=== PATIENT | male | born 2000 | race Asian ===

== ENCOUNTER 2024-05-14 19:51 | Inpatient (IN) ==
--- NOTE | 2024-05-14 20:14 | Emergency Department Note ---
Impression & Plan Flank pain, Elevated serum creatinine, Hematuria ED Provider Note NAME: BAILEY WEEKS AGE: 23 SEX: M : 2000 ARRIVES VIA: Walk-In INFORMANT: Patient, ED PROVIDER(S): Red Landry MD CHIEF COMPLAINT: Flank pain MEDICAL DECISION MAKING: Patient presented due to concern for right abdominal pain. IV was established and blood work was obtained. Patient did receive IV Toradol IV fluids. Patient with a white count of 11 normal H&H platelet count. Creatinine 1.62. Patient was ordered additional IV fluids. Urinalysis does show ketones along with blood in the urine. Patient was informed of these findings pending CAT scan results. The patient was still having right-sided abdominal pain to the patient was ordered IV morphine. Patient CT abdomen pelvis does not show any evidence of bowel obstruction no pneumoperitoneum normal retrocecal appendix. Trace dependent free fluid in the pelvis no loculation considered abnormal in a male patient however etiology fluid not clearly evident. I did reevaluate the patient the patient still had some abdominal pain although improved. I did reevaluate the patient's abdomen and back. There is no bruising. Patient did have a fall on and did fall down several stairs but states that he had no pain at that time and only developed pain last evening. Given the abnormal findings and pain I did speak with the on-call general surgery team to evaluate the patient. Given patient's findings I did speak with Sukhjinder Mckinney as well as Dr. Attila Conrad and the patient would be admitted for observation and serial exams. Discussion w/ other healthcare providers: Sukhjinder Cornejo PA-C with Dr. Attila Conrad general surgery Prior /Outside records reviewed: None Differential diagnosis: Appendicitis, testicular torsion, UTI, diverticulitis, obstruction, renal colic, mesenteric adenitis, enteririts, PUD, pancreatitis, biliary pathology, hernia, volvulus, constipation, as well as other pathologies were considered. Diagnostics, as interpreted by me: ECG: None Cardiac monitoring: An order was placed for continuous cardiac monitoring. The monitor shows a rate of 65 with sinus rhythm. Patient was placed on pulse oximetry Medical decision rules: None Imaging studies: I informally interpreted the patient's CT abdomen pelvis does not show obvious bowel obstruction with formal report to follow. HPI: Patient presents due to concern for right-sided flank and abdominal pain. The patient reports that he began having the symptoms last evening upon returning home from the football game states that he went to bed when he woke up this morning he felt a little bit better but then it progressively got worse throughout the day. Patient denies any chest pains or shortness of breath. No dysuria or hematuria denies any prior history of kidney stones. The patient denies any history of abdominal surgery. Patient states that he had a bowel movement yesterday. The patient is passing gas. Patient did suffer a fall on and was seen at that time which point he was diagnosed with a nasal bone fracture but states that he had no injury or pain after the fall in his flank abdomen or chest. Patient denies any cough or fever. The patient did take some Advil states it did not significantly improve his symptoms. Patient denies any nausea vomiting. PAST MEDICAL HISTORY: See Below PAST SURGICAL HISTORY: See Below SOCIAL HISTORY: See Below HOME MEDICATIONS: See Below ALLERGIES: See Below VITALS: See Below PHYSICAL EXAMINATION: GENERAL: NAD, non-toxic. EYE EXAM: Normal conjunctiva. PERRL, no anisocoria and EOM's grossly intact w/o pain. Head: Age bruising to the nasal bridge OROPHARYNX: Moist mucus membranes, grossly normal dentition. NECK: Trachea midline, no stridor. Supple, no nuchal rigidity, no adenopathy, non-tender. No signs of meningismus. FROM of the neck with good chin to chest and neck extension. No midline C-spine TTP. LUNGS: Clear to auscultation. Normal chest wall mechanics. HEART: NSR, no MRG. ABDOMEN: Abdomen soft, right-sided abdominal pain, no overlying bruising. Negative obturators and psoas, no masses, no rebound or guarding. BACK: Right-sided CVA TTP. SKIN: No rashes and no bruising. UPPER EXTREMITIES: Upper extremities are grossly normal. LOWER EXTREMITIES: Grossly normal, no edema. NEURO EXAM: A&O x3, cranial nerves II-XII grossly intact, normal speech, moves all 4 extremities. 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 Beliefs That Will Affect Care: None Current Living Situation: Other Current Living Situation Comment: Student housing Other Information That Helps Us Care for You: No Feels Safe at Home: Yes Safety Concerns: Feels Safe At This Time Assistive Devices: None Allergies Allergies Allergy/AdvReac Type Severity Reaction Status Date / Time ketamine AdvReac Confusion Verified 05/15/24 09:26 Home Meds Previous Rx's Medication Instructions Recorded amoxicillin 875 mg-potassium 1 tab PO BID #20 tabs 05/12/24 clavulanate 125 mg tablet oxycodone 5 mg tablet 5 mg PO Q6H PRN pain #8 tabs 05/12/24 Results & Data (ED) Vital Signs Vital Signs - 24 hr 05/14/24 19:53 05/14/24 20:29 05/14/24 20:31 Temperature 36.3 C L Temperature Source Temporal Artery Scan Pulse Rate 67 Pulse Rate [Apical] 58 L Respiratory Rate 18 17 Respiratory Depth Blood Pressure 136/79 Blood Pressure [Right Arm] 142/89 H Blood Pressure Mean 98 Blood Pressure Mean [Right Arm] 106 Blood Pressure Position [Right Arm] Right Lateral Pulse Oximetry 97 98 98 Oxygen Delivery Method Room Air Room Air Sepsis Recent Fever Within 48 Hours No Sepsis New/Unexplained Change in Mental Status N/A Sepsis Action Taken by Nursing No Action Required 05/14/24 22:00 Temperature Temperature Source Pulse Rate Pulse Rate [Apical] 60 Respiratory Rate 17 Respiratory Depth Normal Blood Pressure Blood Pressure [Right Arm] 126/70 Blood Pressure Mean Blood Pressure Mean [Right Arm] 88 Blood Pressure Position [Right Arm] Pulse Oximetry 96 Oxygen Delivery Method Sepsis Recent Fever Within 48 Hours Sepsis New/Unexplained Change in Mental Status Sepsis Action Taken by Residential Medications Current Medication List: was personally reviewed by me Laboratory Data Attestation: I reviewed the patient's lab results. 05/15/24 06:18 05/15/24 06:18 Lab Results 05/14/24 Range/Units 20:08 WBC 11.73 H (4.8-10.8) K/ul RBC 5.10 (4.70-6.10) M/uL Hgb 15.9 (14.0-18.0) g/dl Hct 47.9 (42.0-52.0) % MCV 93.9 (80.0-100.0) fL MCH 31.2 (25.0-34.0) pg MCHC 33.2 (32.0-36.0) g/dL RDW Std Deviation 41.5 (36.4-46.3) fL RDW Coeff of Geo 11.9 (11.5-14.5) % Plt Count 250 (130-400) K/uL MPV 9.9 (9.4-12.4) fL Immature Gran % (Auto) 0.3 % Neut % (Auto) 76.1 % Lymph % (Auto) 12.3 % [place] % (Auto) 10.2 % Eos % (Auto) 0.9 % Baso % (Auto) 0.2 % Neut # (Auto) 8.93 H (1.40-6.50) K/uL Lymph # (Auto) 1.44 (1.20-3.40) K/uL [place] # (Auto) 1.20 H (0.11-0.59) K/uL Eos # (Auto) 0.10 (0.00-0.50) K/uL Baso # (Auto) 0.02 (0.00-0.20) K/uL Immature Gran # (Auto) 0.04 (0.01-0.20) K/uL Sodium 138 (136-145) mmol/L Potassium 3.6 (3.5-5.1) mmol/L Chloride 102 (98-107) mmol/L Carbon Dioxide 27 (21-32) mmol/L Anion Gap 9 (3-11) BUN 11 (6-23) mg/dl Creatinine 1.62 H (0.6-1.4) mg/dl Est Cr Clr Drug Dosing Not Reportable Est GFR ( Amer) 69.3 ml/min Est GFR (Non-Af Amer) 59.8 ml/min BUN/Creatinine Ratio 6.8 L (10-20) Glucose 86 (70-99(Fasting)) mg/dl Calcium 9.3 (8.6-10.3) mg/dl Total Bilirubin 1.0 (0.2-1.0) mg/dl AST 23 (13-39) U/L ALT 14 (7-52) U/L Alkaline Phosphatase 65 (34-104) U/L Total Protein 7.5 (6.0-8.3) gm/dl Albumin 4.9 (3.4-5.0) gm/dl Globulin 2.6 (2.5-4.0) gm/dl Albumin/Globulin Ratio 1.9 (0.9-2) Lipase 5 L (11-82) U/L Urine Color Yellow Urine Appearance Clear (Clear) Urine pH 5.5 (4.5-7.5) Ur Specific [place] 1.009 (1.000-1.030) Urine Protein 3+ H (Negative) Urine Glucose (UA) Negative (Negative) Urine Ketones Trace H (Negative) Urine Blood Trace H (Negative) Urine Nitrite Negative (Negative) Urine Bilirubin Negative (Negative) Urine Urobilinogen Negative (Negative) Ur Leukocyte Esterase Negative (Negative) Urine WBC (Auto) 0-5 (0-5) /hpf Urine RBC (Auto) 0-2 (0-2) /hpf U Hyaline Cast (Auto) 3-5 H (0-2) /lpf U Epithel Cells (Auto) 0-2 (0-2) /hpf Urine Bacteria (Auto) None Seen (None Seen) Administered Medications Lactated Ringer's (Lr) 1,000 mls @ 150 mls/hr IV .Q6H40M [facility] Stop: 06/13/24 23:14 Last Admin: 05/15/24 13:55 Dose: 150 mls/hr Documented By: Infusion: 05/15/24 13:45 Dose: Infused Documented By: Infusion: 05/15/24 10:12 Dose: 150 mls/hr Documented By: Admin: 05/15/24 06:27 Dose: 125 mls/hr Documented By: Infusion: 05/15/24 06:26 Dose: Infused Documented By: B Admin: 05/14/24 23:19 Dose: 125 mls/hr Documented By: ARTI Acetaminophen (Ofirmev) 1,000 mg in 100 mls @ 400 mls/hr IV Q8H PRN PRN Reason: Moderate Pain (Scale 4, 5, 6) Stop: 05/17/24 23:23 Last Infusion: 05/15/24 10:10 Dose: Infused Documented By: Admin: 05/15/24 09:54 Dose: 400 mls/hr Documented By: Infusion: 05/15/24 01:39 Dose: Infused Documented By: Admin: 05/15/24 00:22 Dose: 400 mls/hr Documented By: ARTI Discontinued Medications Hydrocodone Bitart/Acetaminophen (Hydrocodone/Acetamophen 5/325mg Tab) 1 tab PO ONCE ONE Stop: 05/15/24 14:16 Last Admin: 05/15/24 14:20 Dose: 1 tab Documented By: JUAN Sodium Chloride (Nss) 500 mls @ 999 mls/hr IV .Q31M STA Stop: 05/14/24 20:51 Last Infusion: 05/14/24 21:17 Dose: Infused Documented By: Admin: 05/14/24 20:29 Dose: 999 mls/hr Documented By: GOGO Sodium Chloride (Nss) 1,000 mls @ 999 mls/hr IV .Q1H1M ONE Stop: 05/14/24 22:20 Last Infusion: 05/14/24 22:56 Dose: Infused Documented By: Admin: 05/14/24 21:25 Dose: 999 mls/hr Documented By: GOGO Ioversol (Optiray 320 100ml) 93 ml IV ONCE ONE Stop: 05/14/24 20:37 Last Admin: 05/14/24 20:37 Dose: 93 ml Documented By: LUCERO Ketorolac Tromethamine (Ketorolac Tromethamine 15 Mg/Ml Vial) 10 mg IV NOW STA Stop: 05/14/24 20:22 Last Admin: 05/14/24 20:29 Dose: 10 mg Documented By: GOGO Morphine Sulfate (Morphine Sulfate 4 Mg/Ml 1 Ml Carp\Vial) 4 mg IV NOW STA Stop: 05/14/24 21:20 Last Admin: 05/14/24 21:26 Dose: 4 mg Documented By: GOGO Morphine Sulfate (Morphine Sulfate 2 Mg/Ml Carp) 2 mg IV NOW STA Stop: 05/15/24 06:22 Last Admin: 05/15/24 06:28 Dose: 2 mg Documented By: DIANE Ondansetron HCl (Ondansetron Inj 2 Mg/Ml 2 Ml Vial) 4 mg IV NOW STA Stop: 05/14/24 20:22 Last Admin: 05/14/24 20:29 Dose: 4 mg Documented By: EMB Imaging Data Radiologist's Impression: Abdomen/Pelvis CT 05/14/24 20:21 Exam(s): CT ABDOMEN + PELVIS With Contrast IV Amt: OPTIRAY 320 93ML EXAM: CT Abdomen and Pelvis With Intravenous Contrast CLINICAL HISTORY: R flank and ab pain. TECHNIQUE: Axial computed tomography images of the abdomen and pelvis with intravenous contrast. CTDI is 9 mGy and DLP is 451 mGy-cm. Automated exposure control was utilized for the study. A dose lowering technique was utilized adhering to the principles of ALARA. CONTRAST: Patient received OPTIRAY 320 93ML of IV contrast COMPARISON: No relevant prior studies available. FINDINGS: Limitations: There is respiratory artifact, which degrades image quality on multiple image slices. Lung bases: Unremarkable. No mass. No consolidation. ABDOMEN: Liver: Unremarkable. No mass. Gallbladder and bile ducts: Unremarkable. No calcified stones. No ductal dilation. Pancreas: Pancreas is unremarkable, accounting for artifact. No definite peripancreatic inflammation or ductal dilation. Spleen: Unremarkable. No splenomegaly. Adrenals: Unremarkable. No mass. Kidneys and ureters: The kidneys demonstrate normal enhancement without pyelonephritis or definite hydronephrosis. Stomach and bowel: Stomach is mild to moderately distended with fluid and gas. No gastric mucosal thickening. No evidence for focal high- grade bowel obstruction. No obvious asymmetric bowel mucosal abnormality, accounting for respiratory artifact. Minimal stool burden. No appreciable diverticulitis. PELVIS: Appendix: A normal caliber gas-filled retrocecal appendix is noted. Bladder: The bladder is mildly distended. No bladder stones or bladder wall thickening noted. Reproductive: Unremarkable as visualized. ABDOMEN and PELVIS: Intraperitoneal space: Trace dependent free fluid in the pelvis. No loculation. No free air. Bones/joints: No acute osseous abnormality. Soft tissues: Unremarkable. Vasculature: Unremarkable. No abdominal aortic aneurysm. Lymph nodes: Unremarkable. No enlarged lymph nodes. IMPRESSION: 1. No evidence for focal high-grade bowel obstruction. No obvious asymmetric bowel mucosal abnormality, accounting for respiratory artifact. Minimal stool burden. No appreciable diverticulitis. No pneumoperitoneum. Incidental normal retrocecal appendix. 2. Trace dependent free fluid in the pelvis. No loculation. This is considered abnormal in a male patient; however, the etiology of the fluid is not clearly evident. Electronically signed by: Milind Garcia MD 05/14/24 22:42 PM Discharge Plan Visit Data Chief Complaint: Flank Pain Stated Complaint: KIDNEY/ABD PAIN/TRAVELS TO BACK ED Provider: eRd Landry Discharge Problem: Flank pain, Elevated serum creatinine, Hematuria Patient Disposition: Admitted As Inpatient Discharge Instructions Interventions: ED Discharge Assessment Last Done: 05/15/24 00:34 Discharge Problem: Hematuria Qualifiers: Hematuria type: unspecified type Qualified Code(s): R31.9 - Hematuria, unspecified
[2024-05-14 20:29] LABS: Appearance Urine Clear (Clear); Bacteria Urine Automated None Seen (None Seen); Bilirubin Urine Negative (Negative); Blood Urine Trace (Negative); Color Urine Yellow; Epithelial Cell Urine Auto 0-2 /hpf (0-2); Glucose Urine UA Negative (Negative); Ketones Urine Trace (Negative); Leukocyte Esterase Urine Negative (Negative); Nitrite Urine Negative (Negative); Protein Urine 3+ (Negative); RBC Urine Automated 0-2 /hpf (0-2); Specific Gravity Urine 1.009 (1.000-1.030); Urobilinogen Urine Negative (Negative); WBC Urine Automated 0-5 /hpf (0-5); pH Urine 5.5 (4.5-7.5)
[2024-05-14] MEDS: ONDANSETRON INJ 2 MG/ML 2 ML VIAL IV STA (20:29)
[2024-05-14] MEDS: SODIUM CHLORIDE 0.9% 500 ML IV STA (20:29)
[2024-05-14] MEDS: KETOROLAC TROMETHAMINE 15 MG/ML VIAL IV STA (20:29)
[2024-05-14] MEDS: OPTIRAY 320 100ml IV ONE (20:37)
[2024-05-14 20:41] LABS: Basophils # (auto) 0.02 K/uL (0.00-0.20); Basophils % (auto) 0.2 %; Eosinophils % (auto) 0.9 %; Hematocrit (blood only) 47.9 % (42.0-52.0); Hemoglobin 15.9 g/dl (14.0-18.0); Immature Granulocytes # (auto) 0.04 K/uL (0.01-0.20); Immature Granulocytes % (auto) 0.3 %; Lymphocytes # (auto) 1.44 K/uL (1.20-3.40); Lymphocytes % (auto) 12.3 %; Mean Corpuscular Hemoglobin 31.2 pg (25.0-34.0); Mean Corpuscular Hgb Conc 33.2 g/dL (32.0-36.0); Mean Corpuscular Volume 93.9 fL (80.0-100.0); Mean Platelet Volume 9.9 fL (9.4-12.4); Monocytes % (auto) 10.2 %; Neutrophils # (auto) 8.93 K/uL (1.40-6.50); Neutrophils % (auto) 76.1 %; Platelet Count 250 K/uL (130-400); RDW Coefficient of Variation 11.9 % (11.5-14.5); RDW Standard Deviation 41.5 fL (36.4-46.3); White Blood Count 11.73 K/ul (4.8-10.8)
[2024-05-14 21:01] LABS: Alanine Aminotransferase 14 U/L (7-52); Albumin Globulin Ratio 1.9 (0.9-2); Albumin Level 4.9 gm/dl (3.4-5.0); Alkaline Phosphatase 65 U/L (34-104); Anion Gap 9 (3-11); Aspartate Aminotransferase 23 U/L (13-39); BUN Creatinine Ratio 6.8 (10-20); Blood Urea Nitrogen 11 mg/dl (6-23); Calcium 9.3 mg/dl (8.6-10.3); Carbon Dioxide 27 mmol/L (21-32); Chloride 102 mmol/L (98-107); Est GFR (African American) 69.3 ml/min; Est GFR (Non-African American) 59.8 ml/min; Globulin 2.6 gm/dl (2.5-4.0); Glucose 86 mg/dl (70-99(Fasting)); Lipase 5 U/L (11-82); Potassium 3.6 mmol/L (3.5-5.1); Sodium 138 mmol/L (136-145); Total Protein 7.5 gm/dl (6.0-8.3)
[2024-05-14] MEDS: SODIUM CHLORIDE 0.9% 1,000 ML IV ONE (21:25)
[2024-05-14] MEDS: MoRPHine SULFATE 4 MG/ML 1 ML CARP\\VIAL IV STA (21:26)
--- NOTE | 2024-05-14 22:43 | CT Scan Report ---
Exam(s): CT ABDOMEN + PELVIS With Contrast IV Amt: OPTIRAY 320 93ML EXAM: CT Abdomen and Pelvis With Intravenous Contrast CLINICAL HISTORY: R flank and ab pain. TECHNIQUE: Axial computed tomography images of the abdomen and pelvis with intravenous contrast. CTDI is 9 mGy and DLP is 451 mGy-cm. Automated exposure control was utilized for the study. A dose lowering technique was utilized adhering to the principles of ALARA. CONTRAST: Patient received OPTIRAY 320 93ML of IV contrast COMPARISON: No relevant prior studies available. FINDINGS: Limitations: There is respiratory artifact, which degrades image quality on multiple image slices. Lung bases: Unremarkable. No mass. No consolidation. ABDOMEN: Liver: Unremarkable. No mass. Gallbladder and bile ducts: Unremarkable. No calcified stones. No ductal dilation. Pancreas: Pancreas is unremarkable, accounting for artifact. No definite peripancreatic inflammation or ductal dilation. Spleen: Unremarkable. No splenomegaly. Adrenals: Unremarkable. No mass. Kidneys and ureters: The kidneys demonstrate normal enhancement without pyelonephritis or definite hydronephrosis. Stomach and bowel: Stomach is mild to moderately distended with fluid and gas. No gastric mucosal thickening. No evidence for focal high- grade bowel obstruction. No obvious asymmetric bowel mucosal abnormality, accounting for respiratory artifact. Minimal stool burden. No appreciable diverticulitis. PELVIS: Appendix: A normal caliber gas-filled retrocecal appendix is noted. Bladder: The bladder is mildly distended. No bladder stones or bladder wall thickening noted. Reproductive: Unremarkable as visualized. ABDOMEN and PELVIS: Intraperitoneal space: Trace dependent free fluid in the pelvis. No loculation. No free air. Bones/joints: No acute osseous abnormality. Soft tissues: Unremarkable. Vasculature: Unremarkable. No abdominal aortic aneurysm. Lymph nodes: Unremarkable. No enlarged lymph nodes. IMPRESSION: 1. No evidence for focal high-grade bowel obstruction. No obvious asymmetric bowel mucosal abnormality, accounting for respiratory artifact. Minimal stool burden. No appreciable diverticulitis. No pneumoperitoneum. Incidental normal retrocecal appendix. 2. Trace dependent free fluid in the pelvis. No loculation. This is considered abnormal in a male patient; however, the etiology of the fluid is not clearly evident. Electronically signed by: Milind Garcia MD 05/14/24 22:42 PM
[2024-05-14] MEDS: LACTATED RINGER'S 1,000 ML IV SCH (23:19)
--- NOTE | 2024-05-14 23:23 | History & Physical Report ---
<Statement entered by Kennedy Lowry DO - 05/15/24 10:13> This case was discussed with the surgical PA. I agree with this plan. Date of Service May 14, 2024 Assessment & Plan (1) Flank pain: Plan: I evaluated the patient in room C5 in the emergency department. Due to the patient's presentation and findings on CT scan he is going to be admitted to the surgical service proceeding as follows: Discussed with the patient that he has some trace free fluid in his pelvis which is abnormal. The exact etiology has not been ascertained so I feel is in patient's best interest to observe him in the hospital to see if he has any significant pathology that has yet to declare itself Will provide the patient with analgesics Will provide antiemetics Will hydrate him with IV fluids We will keep him n.p.o. for the present time The patient does not have any obvious source of infection so we will hold antibiotics at this time We will check a repeat urinalysis in the morning as the patient is noted to have trace blood on his urinalysis. If the patient has further blood noted on urinalysis this will require follow-up which can likely be pursued on an outpatient basis Will repeat labs in the morning Will follow serial exams We use SCDs for DVT prevention, will withhold chemical means until it is ascertained that the patient will not require any surgical procedure intervention The patient will be a level 1 full code History of Present Illness Chief Complaint: Right flank pain Primary Care Provider: NO PCP This is a 23-year-old male who presented [facility] secondary to right-sided flank pain. The patient said that the pain began approximate 24 hours ago. He says it radiates somewhat to his upper abdomen. He has had associated nausea without vomiting. He did have some subjective fever but admits that he did not check his temperature. He does note that the pain is worse with certain movements. He does not really identify any palliative factors. He says that he did have a normal bowel movement today without any hematochezia, bright blood per rectum, or melena. The patient also reports that several days ago he did fall while carrying some food and he struck his face without loss of consciousness. He specifically notes that he did not strike his back or flank where he currently has pain. He notes he has never had any abdominal surgery. The patient notes that he has not had any meaningful oral intake today. Since arrival emerged part patient has had labs and imaging were checked and reviewed. CT scan of the abdomen pelvis showed no evidence of bowel obstruction. There is minimal stool burden noted. There is no evidence of diverticulitis or appendicitis. Patient was noted to have some trace dependent fluid in the pelvis which interpreting radiologist felt was abnormal for patient of this age. Labs included CBC her white blood cell count was elevated 11.7. Hemoglobin and hematocrit as well as platelet count were normal. Chemistry profile showed sodium and potassium were normal. His BUN was normal. Creatinine a slight elevation of 1.6. There is no elevation of his LFTs or lipase. Urinalysis was not indicative of infection but he did have trace of blood on his urinalysis. At the time of my interview the patient was resting comfortably bed he was no distress. Concerning past medical history the patient denies any medical problems Concerning past surgical history the patient has had his wisdom teeth extracted, a left elbow reduction secondary dislocation, and a close reduction of his nose secondary to fracture External social history the patient smokes marijuana and has used this substance within the past 24 hours. He also has a history of vaping but says he quit this approximately 1 to 2 months ago. Concerning family history he is adopted so is unaware of any significant family history Allergies Allergy/AdvReac Type Severity Reaction Status Date / Time No Known Allergies Allergy Verified 05/24/22 21:11 Home Medications Medication Instructions Recorded Confirmed Type amoxicillin 875 mg-potassium 1 tab PO BID #20 tabs 05/12/24 05/14/24 Rx clavulanate 125 mg tablet oxycodone 5 mg tablet 5 mg PO Q6H PRN pain #8 tabs 05/12/24 05/14/24 Rx Past Med/Surg History Problem List (Updated 05/14/24 @ 23:21 by Fransico Cornejo PA-C) Flank pain Fall down stairs (Acute) Head injury (Acute) Deformity of nose (Acute) Closed fracture nasal bone (Acute) Social History Smoking Status: Never smoker Preferred Language: [place] Feels Safe at Home: Yes Review of Systems Review of Systems: All systems reviewed & are unremarkable except as noted in HPI & below Physical Exam Constitutional: WD/WN, vitals as above Eyes: PERRL, conjunctivae normal, anicteric sclerae ENMT: Ears: no external ear abnormality Mouth: no oropharynx abnormality Neck: trachea midline Respiratory: normal respiratory effort; no respiratory distress and no labored breathing Cardiovascular: Rate/Rhythm: regular rate and regular rhythm Gastrointestinal (Abdomen): Patient abdomen is soft, nondistended and nonrigid at the time my exam. The patient had minimal pain with palpation of his abdomen and no rebound tenderness or guarding was noted. Musculoskeletal: No calf tenderness bilaterally. Pedal pulses are palpable. Skin: no rashes Neurologic: moves all extremities Psychiatric: A+Ox3, euthymic affect Genitourinary: No CVA tenderness with percussion on the left. Patient had slight CVA tenderness with percussion on the right Results & Data Results & Data Vital Signs (Past 12 Hours) Vital Signs Temp Pulse Pulse Resp BP BP Pulse Ox 05/14/24 22:00 60 17 126/70 96 05/14/24 20:31 98 05/14/24 20:29 58 L 17 142/89 H 98 05/14/24 19:53 36.3 C L 67 18 136/79 97 O2 Del Method 05/14/24 22:00 05/14/24 20:31 Room Air 05/14/24 20:29 05/14/24 19:53 Room Air PG Care Time/CCT Total # of Minutes Spent Total Time Spent with Patient: Total time spent is greater than 50% in coordination of care (as documented) at patient's floor/unit and/or counseling patient: Coding Level of Care Code 22922 INT INP/OBS CARE 3/75MIN Diagnoses Flank pain R10.9
[2024-05-15] MEDS: ACETAMINOPHEN 1,000 MG/100 ML VIAL IV PRN (00:22)
[2024-05-15] MEDS: MoRPHine SULFATE 2 MG/ML CARP IV STA (06:28)
[2024-05-15 06:46] LABS: Basophils # (auto) 0.02 K/uL (0.00-0.20); Basophils % (auto) 0.2 %; Eosinophils # (auto) 0.17 K/uL (0.00-0.50); Eosinophils % (auto) 1.8 %; Hematocrit (blood only) 40.6 % (42.0-52.0); Hemoglobin 14.5 g/dl (14.0-18.0); Immature Granulocytes # (auto) 0.02 K/uL (0.01-0.20); Immature Granulocytes % (auto) 0.2 %; Lymphocytes # (auto) 2.28 K/uL (1.20-3.40); Lymphocytes % (auto) 24.3 %; Mean Corpuscular Hemoglobin 33.3 pg (25.0-34.0); Mean Corpuscular Hgb Conc 35.7 g/dL (32.0-36.0); Mean Corpuscular Volume 93.1 fL (80.0-100.0); Monocytes # (auto) 1.13 K/uL (0.11-0.59); Monocytes % (auto) 12.1 %; Neutrophils # (auto) 5.75 K/uL (1.40-6.50); Neutrophils % (auto) 61.4 %; Platelet Count 213 K/uL (130-400); RDW Coefficient of Variation 11.8 % (11.5-14.5); RDW Standard Deviation 40.6 fL (36.4-46.3); Red Blood Count 4.36 M/uL (4.70-6.10); White Blood Count 9.37 K/ul (4.8-10.8)
[2024-05-15 06:56] LABS: Appearance Urine Clear (Clear); Bilirubin Urine Negative (Negative); Blood Urine Trace-intact (Negative); Color Urine Yellow; Glucose Urine UA Negative (Negative); Ketones Urine Trace (Negative); Leukocyte Esterase Urine Negative (Negative); Nitrite Urine Negative (Negative); Protein Urine 2+ (Negative); Urobilinogen Urine Negative (Negative); pH Urine 5.5 (4.5-7.5)
[2024-05-15 07:01] LABS: BUN Creatinine Ratio 7.5 (10-20); Calcium 8.6 mg/dl (8.6-10.3); Creatinine Clr Calc Pharmacy 62.8 ml/min; Est GFR (African American) 63.5 ml/min; Est GFR (Non-African American) 54.8 ml/min; Potassium 3.7 mmol/L (3.5-5.1)
[2024-05-15 07:11] LABS: Epithelial Cell Urine 0-2 /hpf (0-2); WBC Urine 0-5 /hpf (0-5)
[2024-05-15 07:12] LABS: Bacteria Urine None Seen (None Seen)
--- NOTE | 2024-05-15 07:36 | Surgery Progress Note ---
<Statement entered by Kennedy Lowry, - 05/15/24 10:02> I have seen and examined this patient this am who states he feels improved but still has occasional episodes of pain that he describes as originating at his central back and radiating around to the right flank. He has no F/C, moves around in bed without pain or issues. Does have tenderness to deep palpation wrapping along the right flank down to the supra-pubic area without peritonitis. Has not declared himself to have appendicitis with normal appendix on admission CT, resolution of WBC without antibiotic treatment o/n and improving symptoms. 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 No acute surgical intervention is indicated at this time. He may have a regular, low protein diet as medical work up ensues as ordered by medicine. We appreciate medical consultation and further recommendations. Date of Service May 15, 2024 Assessment & Plan (1) Flank pain: Plan: Pt here w/ R flank pain and CT read by stat-rads overnight as some free fluid in the pelvis of unclear etiology no reports of kidney stones or appendicitis on the read WBC downtrended to 9 (11). Cr elevated at 1.7 (1.6) Vitals are stable UA shows + blood, 2+ protein, trace ketones... will order a renal US for further eval Given unclear etiology without obvious surgical source we will consult medicine for their assistance with patient for help with workup Admission and Anticipated Discharge Date Admission Date: May 14, 2024 Subjective Patient feeling okay. Still reports pain in R mid back rating it a 5-6/10 in severity. Did require morphine overnight. Some abdominal discomfort, mostly mid/lower R side that goes across to the left. Reports no urinary issues, denies seeing blood in urine, frequency, pain/burning. His nausea yesterday has subsided. No issues with his bowel habits historically. Physical Exam Physical Exam: awake/alert, no distress Gastrointestinal (Abdomen): Inspection/Auscultation: abdomen not distended Percussion/Palpation: abdomen soft + voluntary guarding. pt reports some di scomfort to palpation in bilateral lower abdomen right>left Results & Data Vital Signs (Past 12 Hours) Vital Signs Temp Pulse Pulse Pulse Resp BP BP 05/15/24 01:22 97.9 F 50 L 18 128/75 05/15/24 00:34 98.2 F 98 H 18 101/68 05/15/24 00:00 82 22 05/14/24 22:00 60 17 05/14/24 20:31 05/14/24 20:29 58 L 17 05/14/24 19:53 97.3 F L 67 18 136/79 BP Pulse Ox O2 Del Method 05/15/24 01:22 98 Room Air 05/15/24 00:34 97 Room Air 05/15/24 00:00 130/70 96 Room Air 05/14/24 22:00 126/70 96 05/14/24 20:31 98 Room Air 05/14/24 20:29 142/89 H 98 05/14/24 19:53 97 Room Air PG Care Time/CCT Total # of Minutes Spent Total Time Spent with Patient: Total time spent is greater than 50% in coordination of care (as documented) at patient's floor/unit and/or counseling patient: Coding Level of Care Code 26589 SUB INP/OBS CARE 125MIN Diagnoses Flank pain R10.9
--- NOTE | 2024-05-15 08:37 | Hospitalist Consultation ---
Date of Consultation May 15, 2024 Assessment & Plan (1) Elevated serum creatinine: Patient presented with flank pain, CT scan showing free fluid. No stones. Creatinine 1.62--> 1.74, unclear baseline but denies hx of kidney disease Reports that he doubled his protein and creatine intake prior to workouts for the last month. Lifts weights everyday. rx for Augmentin from recent broken nose, did not complete full course. -Check CK, urine Eos (ordered) -Await renal US results - if no findings, consider 24 hour urine -continue IV fluids -trend BMP Plan Thank you for allowing us to participate in the care of this patient, medicine will continue to follow. Please reach out with any questions or concerns. Supervising Physician Co-Signing Physician Notes Attending Attestation & Consult Note: Pt seen/examined, chart reviewed, care plan d/w VAZQUEZ Bright. I agree w/ the serra components of her documentation. 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 Last he suffered a fall (walking down steps, fell down from a height of 3 steps) which led to an ER visit. Imaging during that visit showed a nasal bone fracture. He denies injuring any other area. Then, on Wednesday, began to have mild right flank pain which worsened into Wednesday. Wednesday he noted loss of appetite. He takes protein supplements - about 60-90 grams protein/day and creatine, about 5 grams/day. His parents called his PCP back in [place] -- they faxed records; Creatinine was 1 in 03/2023. U/a without blood/protein in 03/2023. During my visit he continues to c/o right flank pain. PMH/PSH/allergies/meds/sochx/famhx - reviewed Patient denies any recent URI symptoms or other illnesses except for nasal congestion. VSS, afebrile gen - NAD, WD/WN, muscular mouth - MMM neck - no lymphadenopathy heart - RRR, s1 s2, no murmur lungs - CTA b/l abd - soft, ND, BS+, No HSM; +flank tenderness on right, none on left; mild tenderness RLQ musculo - no pain in RLQ with passive ROM of right or left leg ext - no edema, pulses 2+ b/l labs reviewed imaging reviewed A/P: 1. right flank pain - etiology?? musculoskeletal? 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 CT a/p from admission with minimal amount of free fluid in the pelvis - etiology uncertain. No evidence of intra-abdominal organ injury. Will check KUB x-ray - r/o any new process. 2. proteinuria - repeat u/a in am 3. mild rhabdomyolysis / elevated CPK - cont IVF 4. recent augmentin use for nasal fracture - doubt AIN, but check urine eosinophils to be complete 5. check a COVID test 6. I spoke with Dr Farrell from [facility]; asked for formal consultation in light of complexity of presentation Tien Shultz MD History of Present Illness Reason for Consultation: proteinuria, increasing Cr Requesting Physician: Swati Conrad Attending Physician: Kennedy Lowry DO History of Present Illness Ghulam is a 23M with no past medical history who presented for flank pain, hospital medicine was consulted for proteinuria with increased Cr. Patient still endorses right flank pain that wraps around to the front side. No hx of kidney stones or kidney disease. Does state that he works out everyday lifting weights and recently nearly doubled his creatine supplements and protein intake. He has not noticed any darkening of his urine or blood in his urine. Was prescribed Augmentin for this recent broken nose, last dose Wednesday, but has not completed the whole course. Allergies Allergy/AdvReac Type Severity Reaction Status Date / Time ketamine AdvReac Confusion Verified 05/15/24 09:26 Home Medications Medication Instructions Recorded Confirmed Type amoxicillin 875 mg-potassium 1 tab PO BID #20 tabs 05/12/24 05/14/24 Rx clavulanate 125 mg tablet oxycodone 5 mg tablet 5 mg PO Q6H PRN pain #8 tabs 05/12/24 05/14/24 Rx Patient History Medical History Closed fracture nasal bone Surgical History H/O wisdom tooth extraction Family History Other Adopted Social History Smoking Status: Never smoker Hx Alcohol Use: Yes Alcohol type: beer, wine and hard liquor Hx Substance Use: Yes Last Used Substance: Hours (ago) Last Used Substance Other:: Marijuana daily Preferred Language: Latvian Communication Ability: Effective Corporate Analyst Required: No Beliefs That Will Affect Care: None Current Living Situation: Other Current Living Situation Comment: Student housing Other Information That Helps Us Care for You: No Feels Safe at Home: Yes Safety Concerns: Feels Safe At This Time Assistive Devices: None Review of Systems Review of Systems: All systems reviewed & are unremarkable except as noted in Subjective Physical Exam Physical Exam: General: NAD, VS as above Resp: normal respiratory effort, lungs clear to auscultation CV: RRR, no murmur, Abd: soft, normal bowel sounds, non tender, no hepatosplenomegaly Back: right CVA tenderness Extremities: Moves all extremities, no edema. No calf tenderness. Neuro: A&O x3, Skin: intact, no lesions noted Results & Data Results & Data Vital Signs (Past 12 Hours) Vital Signs Temp Pulse Pulse Pulse Resp BP BP 05/15/24 07:59 97.3 F L 60 18 124/65 05/15/24 01:22 97.9 F 50 L 18 128/75 05/15/24 00:34 98.2 F 98 H 18 101/68 05/15/24 00:00 82 22 05/14/24 22:00 60 17 BP Pulse Ox O2 Del Method 05/15/24 07:59 98 Room Air 05/15/24 01:22 98 Room Air 05/15/24 00:34 97 Room Air 05/15/24 00:00 130/70 96 Room Air 05/14/24 22:00 126/70 96 Laboratory Results CBC, chemistry and UA reviewed Diagnostic Findings CT reviewed PG Care Time/CCT Total # of Minutes Spent Total Time Spent with Patient: Total time spent is greater than 50% in coordination of care (as documented) at patient's floor/unit and/or counseling patient: Coding Level of Care Code 81124 IN/OBS CONSULT LVL 4,60M Diagnoses Elevated serum creatinine R79.89
--- NOTE | 2024-05-15 10:07 | Ultrasound Report ---
RENAL ULTRASOUND HISTORY: Acute right-sided flank pain R flank pain, elevated Cr, + blood on UA COMPARISON: CT 05/14/2024 FINDINGS: Right kidney: 10.3 cm. No hydronephrosis. Normal corticomedullary differentiation and cortical thickn ess. Left kidney: 11.0 cm. No hydronephrosis. Normal corticomedullary differentiation and cortical thickne ss. Bladder: No bladder wall thickening. The bilateral ureteral jets were identified. IMPRESSION: 1. No renal calculi or hydronephrosis identified by ultrasound. 2. Note that on the comparison CT from yesterday there is asymmetric right-sided perinephric strandin g with urothelial thickening suspicious for an infectious etiology. Correlate with urinalysis. ACT 112: Negative or not required by law. Electronically signed by: Jonas Handley M.D. 05/15/2024 10:05 AM
[2024-05-15] MEDS: HYDROCODONE/ACETAMOPHEN 5/325MG TAB PO ONE (14:20)
--- NOTE | 2024-05-15 16:44 | Nephrology Consultation ---
Date of Consultation May 15, 2024 Assessment & Plan (1) Elevated serum creatinine: Non-oliguric. No baseline kidney function tests available for reviewed. Euvolemic. Electrolytes normal. CK slightly elevated but not significant enough to account for significant RITCHIE and certainly does not explain symptoms. No renal infarct or concerning evidence of venous thrombosis on CT. Kidneys are unobstructed. Urine does not demonstrate evidence of infection. No stones are appreciated. Clinical presentation very atypical for GN. Certainly not consistent with RPGN. Follow up urine studies will be arranged to monitor. I would also like to quantify proteinuria with UACR. IVF will be continued overnight as ordered (LR @ 150 ml/hr). Blood work and urine studies will be repeated in the AM. Document strict I/O's. Avoid NSAIDS. (2) Hematuria: Microscopic hematuria with a few RBC's on microscopy today. No dysmorphic RBCs or casts. Symptoms suggest non-glomerular cause. No WBCs or evidence of UTI. (3) Flank pain: Etiology unclear. Symptoms now moving toward abdomen. No stones or obstruction appreciated on imaging. 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 Symptoms started suddenly within 24 hours of presentation to the hospital. Ghulam experienced intense, sharp pain on the right side of his back below the ribs. Pain has been radiating to the upper abdomen. Symptoms are now starting to travel into his lower abdomen but he continues to experience tenderness and discomfort in the lower back on the right . He denies any specific trauma to the area. He has never had similar symptoms in the past. He denies any urinary symptoms. No objective fevers or any shaking chills. He did report some recent mild subjective fevers approximately 24 hours prior to presentation which resolved. Ghulam otherwise felt well. CT scan demonstrated trace free fluid in the pelvis. No specific pathology to correlate with the free fluid or his symptoms. A follow up US was then completed. Mr. Hanley was admitted to the surgical service for monitoring. Serum creatinine 1.6 mg/dL on admission was 1.74 mg/dL this morning. The patient has been non- oliguric. UA on admission notable for a SG 1.009, +3 protein, trace blood. Microscopy with hyaline casts. Repeat urine studies obtained today demonstrating SG 1.010, +2 protein, trace blood. Microscopy with 3-5 RBC/hpf but no WBCs or casts. CK is 672 U/L. There is no significant history of NSAID use. Ghulam took a couple of doses of Augmentin within the last week. He suffered a fall with facial injury and nasal fracture last week for which he was evaluated in the ER. He denies any injury to the back or flanks. He denies any gross hematuria. Serum electrolytes are normal. There is no prior history of kidney dysfunction. Baseline creatinine unknown. 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 He maintains a daily protein intake of ~60-100 grams through supplements. He also recently resumed creatine supplementation. Allergies Allergy/AdvReac Type Severity Reaction Status Date / Time ketamine AdvReac Confusion Verified 05/15/24 09:26 Home Medications Medication Instructions Recorded Confirmed Type amoxicillin 875 mg-potassium 1 tab PO BID #20 tabs 05/12/24 05/14/24 Rx clavulanate 125 mg tablet oxycodone 5 mg tablet 5 mg PO Q6H PRN pain #8 tabs 05/12/24 05/14/24 Rx Patient History Medical History Closed fracture nasal bone Surgical History H/O wisdom tooth extraction Family History Other Adopted Social History Smoking Status: Never smoker Hx Alcohol Use: Yes Alcohol type: beer, wine and hard liquor Hx Substance Use: Yes Last Used Substance: Hours (ago) Last Used Substance Other:: Marijuana daily Preferred Language: Frisian Communication Ability: Effective Researcher Required: No Beliefs That Will Affect Care: None Current Living Situation: Other Current Living Situation Comment: Student housing Other Information That Helps Us Care for You: No Feels Safe at Home: Yes Safety Concerns: Feels Safe At This Time Assistive Devices: None Review of Systems Review of Systems: All systems reviewed & are unremarkable except as noted in HPI & below Gastrointestinal: + nausea; no vomiting, no change in denny l habits and no change in stools Genitourinary: + flank pain; no dysuria or no hematuria Physical Exam Constitutional: well developed; no acute distress Eyes: + anicteric sclerae; no conjunctival abn ormality ENMT: Mouth: oral mucous membranes not dry Neck: normal visual inspection and trachea midline Respiratory: normal respiratory effort Cardiovascular: Rate/Rhythm: + bradycardic Heart Sounds: normal S1 and normal S2 Extremities: no edema Gastrointestinal (Abdomen): Inspection/Auscultation: abdomen normal to inspection; abdomen not distended Percussion/Palpation: + abdomen tender; no guarding, abdomen not rigid and no hepatosplenomegaly Musculoskeletal: Extremities: no cyanosis and no clubbing Skin: no rashes Neurologic: Motor/Sensory: no tremor and no asterixis Psychiatric: Orientation: alert and oriented x 3 Results & Data Vital Signs (Past 12 Hours) Vital Signs Temp Pulse Resp BP Pulse Ox O2 Del Method 05/15/24 15:15 36.4 C L 54 L 18 135/64 97 Room Air 05/15/24 07:59 36.3 C L 60 18 124/65 98 Room Air Laboratory Results Laboratory Results - last 24 hr 05/14/24 05/15/24 05/15/24 20:08 06:15 06:18 WBC 11.73 H 9.37 RBC 5.10 4.36 L Hgb 15.9 14.5 Hct 47.9 40.6 L MCV 93.9 93.1 MCH 31.2 33.3 MCHC 33.2 35.7 RDW Std Deviation 41.5 40.6 RDW Coeff of Geo 11.9 11.8 Plt Count 250 213 MPV 9.9 10.0 Immature Gran % (Auto) 0.3 0.2 Neut % (Auto) 76.1 61.4 Lymph % (Auto) 12.3 24.3 [place] % (Auto) 10.2 12.1 Eos % (Auto) 0.9 1.8 Baso % (Auto) 0.2 0.2 Neut # (Auto) 8.93 H 5.75 Lymph # (Auto) 1.44 2.28 [place] # (Auto) 1.20 H 1.13 H Eos # (Auto) 0.10 0.17 Baso # (Auto) 0.02 0.02 Immature Gran # (Auto) 0.04 0.02 Sodium 138 140 Potassium 3.6 3.7 Chloride 102 106 Carbon Dioxide 27 25 Anion Gap 9 9 BUN 11 13 Creatinine 1.62 H 1.74 H Est Cr Clr Drug Dosing Not Reportable 62.8 Est GFR ( Amer) 69.3 63.5 Est GFR (Non-Af Amer) 59.8 54.8 BUN/Creatinine Ratio 6.8 L 7.5 L Glucose 86 78 Calcium 9.3 8.6 Total Bilirubin 1.0 AST 23 ALT 14 Alkaline Phosphatase 65 Total Creatine Kinase 672 H Total Protein 7.5 Albumin 4.9 Globulin 2.6 Albumin/Globulin Ratio 1.9 Lipase 5 L Urine Color Yellow Yellow Urine Appearance Clear Clear Urine pH 5.5 5.5 Ur Specific [place] 1.009 1.010 Urine Protein 3+ H 2+ H Urine Glucose (UA) Negative Negative Urine Ketones Trace H Trace H Urine Blood Trace H Trace-intact H Urine Nitrite Negative Negative Urine Bilirubin Negative Negative Urine Urobilinogen Negative Negative Ur Leukocyte Esterase Negative Negative Urine WBC (Auto) 0-5 Urine RBC (Auto) 0-2 U Hyaline Cast (Auto) 3-5 H U Epithel Cells (Auto) 0-2 Urine Bacteria (Auto) None Seen Urine RBC 3-5 H Urine WBC 0-5 Ur Epithelial Cells 0-2 Urine Bacteria None Seen Diagnostic Findings CT Abdomen and Pelvis With Intravenous Contrast FINDINGS: Limitations: There is respiratory artifact, which degrades image quality on multiple image slices. Lung bases: Unremarkable. No mass. No consolidation. ABDOMEN: Liver: Unremarkable. No mass. Gallbladder and bile ducts: Unremarkable. No calcified stones. No ductal dilation. Pancreas: Pancreas is unremarkable, accounting for artifact. No definite peripancreatic inflammation or ductal dilation. Spleen: Unremarkable. No splenomegaly. Adrenals: Unremarkable. No mass. Kidneys and ureters: The kidneys demonstrate normal enhancement without pyelonephritis or definite hydronephrosis. Stomach and bowel: Stomach is mild to moderately distended with fluid and gas. No gastric mucosal thickening. No evidence for focal high- grade bowel obstruction. No obvious asymmetric bowel mucosal abnormality, accounting for respiratory artifact. Minimal stool burden. No appreciable diverticulitis. PELVIS: Appendix: A normal caliber gas-filled retrocecal appendix is noted. Bladder: The bladder is mildly distended. No bladder stones or bladder wall thickening noted. Reproductive: Unremarkable as visualized. ABDOMEN and PELVIS: Intraperitoneal space: Trace dependent free fluid in the pelvis. No loculation. No free air. Bones/joints: No acute osseous abnormality. Soft tissues: Unremarkable. Vasculature: Unremarkable. No abdominal aortic aneurysm. Lymph nodes: Unremarkable. No enlarged lymph nodes. IMPRESSION: 1. No evidence for focal high-grade bowel obstruction. No obvious asymmetric bowel mucosal abnormality, accounting for respiratory artifact. Minimal stool burden. No appreciable diverticulitis. No pneumoperitoneum. Incidental normal retrocecal appendix. 2. Trace dependent free fluid in the pelvis. No loculation. This is considered abnormal in a male patient; however, the etiology of the fluid is not clearly evident. RENAL ULTRASOUND COMPARISON: CT 05/14/2024 FINDINGS: Right kidney: 10.3 cm. No hydronephrosis. Normal corticomedullary differentiation and cortical thickness. Left kidney: 11.0 cm. No hydronephrosis. Normal corticomedullary differentiation and cortical thickness. Bladder: No bladder wall thickening. The bilateral ureteral jets were identified. IMPRESSION: 1. No renal calculi or hydronephrosis identified by ultrasound. 2. Note that on the comparison CT from yesterday there is asymmetric right-sided perinephric stranding with urothelial thickening suspicious for an infectious etiology. PG Care Time/CCT Total # of Minutes Spent Total Time Spent with Patient: Total time spent is greater than 50% in coordination of care (as documented) at patient's floor/unit and/or counseling patient: Coding Level of Care Code 85539 IN/OBS CONSULT LVL 4,60M Diagnoses Elevated serum creatinine R79.89 Hematuria R31.9 Hematuria type: unspecified type Flank pain R10.9 (2) Hematuria Hematuria type: unspecified type Qualified Code(s): R31.9 - Hematuria, unspecified
[2024-05-15] MEDS: oxyCODONE HCL IR 5 MG TAB (IMMEDIATE RELEASE) PO STA (17:26)
[2024-05-15] MEDS: SIMETHICONE 80 MG CHEW PO ONE (17:26)
--- NOTE | 2024-05-15 19:22 | XRay Report ---
XR abdomen min 2V CLINICAL HISTORY: Right-sided abdominal pain. COMPARISON STUDY: CT of the abdomen and pelvis May 14, 2024 renal ultrasound performed earlier today. FINDINGS: The bowel gas pattern is normal. The amount of stool is within normal limits. No urinary c alculi are identified. IMPRESSION: Unremarkable KUB. ACT 112: Negative or not required by law. Electronically signed by: Tan Clement M.D. 05/15/2024 7:20 PM
[2024-05-15] MEDS: HYDROmorphone INJ 0.5 MG/0.5 ML SYR IV STA (20:24)
[2024-05-16] MEDS: ONDANSETRON INJ 2 MG/ML 2 ML VIAL IV PRN (00:36)
[2024-05-16] MEDS: HYDROmorphone INJ 0.5 MG/0.5 ML SYR IV STA (06:09)
[2024-05-16 06:37] LABS: Basophils # (auto) 0.02 K/uL (0.00-0.20); Basophils % (auto) 0.2 %; Eosinophils # (auto) 0.08 K/uL (0.00-0.50); Eosinophils % (auto) 0.8 %; Hematocrit (blood only) 42.4 % (42.0-52.0); Hemoglobin 14.5 g/dl (14.0-18.0); Immature Granulocytes # (auto) 0.04 K/uL (0.01-0.20); Immature Granulocytes % (auto) 0.4 %; Lymphocytes # (auto) 1.42 K/uL (1.20-3.40); Lymphocytes % (auto) 14.4 %; Mean Corpuscular Hemoglobin 31.7 pg (25.0-34.0); Mean Corpuscular Hgb Conc 34.2 g/dL (32.0-36.0); Mean Corpuscular Volume 92.6 fL (80.0-100.0); Mean Platelet Volume 10.1 fL (9.4-12.4); Monocytes # (auto) 0.95 K/uL (0.11-0.59); Monocytes % (auto) 9.7 %; Neutrophils # (auto) 7.32 K/uL (1.40-6.50); Neutrophils % (auto) 74.5 %; Platelet Count 224 K/uL (130-400); RDW Coefficient of Variation 11.6 % (11.5-14.5); RDW Standard Deviation 39.4 fL (36.4-46.3); Red Blood Count 4.58 M/uL (4.70-6.10); White Blood Count 9.83 K/ul (4.8-10.8)
[2024-05-16 06:43] LABS: Appearance Urine Clear (Clear); Bilirubin Urine Negative (Negative); Blood Urine 2+ (Negative); Color Urine Yellow; Glucose Urine UA Negative (Negative); Ketones Urine Trace (Negative); Leukocyte Esterase Urine Negative (Negative); Nitrite Urine Negative (Negative); Protein Urine 1+ (Negative); Specific Gravity Urine <= 1.005 (1.000-1.030); Urobilinogen Urine Negative (Negative); pH Urine 5.5 (4.5-7.5)
[2024-05-16 07:00] LABS: Creatinine Urine Random 54.7 mg/dl; Protein Creatinine Ratio Urine 0.5 (0-0.2); Total Protein Urine Random 28.8 mg/dl (0-11.9)
[2024-05-16 07:04] LABS: BUN Creatinine Ratio 8.2 (10-20); Calcium 8.6 mg/dl (8.6-10.3); Creatinine Clr Calc Pharmacy 69.1 ml/min; Est GFR (African American) 71.4 ml/min; Est GFR (Non-African American) 61.6 ml/min; Potassium 3.8 mmol/L (3.5-5.1)
[2024-05-16 07:05] LABS: Bacteria Urine None Seen (None Seen); Epithelial Cell Urine 0-2 /hpf (0-2); RBC Urine 0-2 /hpf (0-2); WBC Urine 0-5 /hpf (0-5)
--- NOTE | 2024-05-16 10:07 | Nephrology Progress Note ---
Date of Service May 16, 2024 Assessment & Plan (1) Elevated serum creatinine: Plan: Non-oliguric. Serum creatinine was 1.0 mg/dL in March 2023. Creatinine slightly improved to 1.5 mg/dL this AM. Euvolemic. Electrolytes normal. CK trending down. No renal infarct or concerning evidence of venous thrombosis on CT. Kidneys are unobstructed. Urine does not demonstrate evidence of infection. No stones are appreciated. Clinical presentation is not consistent with GN. Follow up urine studies reviewed. PCR 0.5. Urine acellular. Outpatient nephrology follow up encouraged. 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 I will continue IVF for now but certainly consideration may be made to stopping if dicharge is planned. Avoid NSAIDS. If discharged, close outpatient follow up in the nephrology clinic is encou raged. (2) Hematuria: Plan: Microscopic hematuria with a few RBC's on microscopy yesterday. Repeat urine microscopy was acellular. No dysmorphic RBCs or casts. Symptoms suggest non- glomerular cause. No WBCs or evidence of UTI. No additional evaluation at this time. Prospective monitoring encouraged. (3) Flank pain: Plan: Etiology unclear. Symptoms suggestive of possible recently passed stone or musculoskeletal etiology. No stones or obstruction appreciated on imaging. Admission and Anticipated Discharge Date Admission Date: May 15, 2024 Subjective No acute events overnight. Ghulam continues to struggle with back and abdominal pain. He feels uncomfortable and has had difficulty resting. He continues to describe an intense dull pain in the back below the ribs and radiating to the abdomen. He has persistent tenderness over the right flank area. He has some lower back tenderness as well. Pain radiates into the the right lower quadrant of the abdomen. Ghulam reports tenderness and discomfort in his lower pelvis as well. No urinary of GI symptoms. Review of Systems Review of Systems: All systems reviewed & are unremarkable except as noted in HPI & below Physical Exam Constitutional: well developed; no acute distress Eyes: + anicteric sclerae ENMT: Mouth: oral mucous membranes not dry Neck: normal visual inspection and trachea midline Respiratory: normal respiratory effort Cardiovascular: Rate/Rhythm: regular rate and regular rhythm Heart Sounds: normal S1 and normal S2 Extremities: no edema Gastrointestinal (Abdomen): Inspection/Auscultation: abdomen normal to inspection; abdomen not distended Percussion/Palpation: + abdomen tender; no guarding, abdomen not rigid and no hepatosplenomegaly Musculoskeletal: Spine: lumbar spine normal to inspection and + paraspinal tenderness; no lumbar spinal tenderness and no sacroiliac joint abnormality Extremities: no cyanosis and no clubbing Skin: no rashes Neurologic: Motor/Sensory: no tremor and no asterixis Psychiatric: Orientation: alert and oriented x 3 Genitourinary: + CVA tenderness (Right) Results & Data Vital Signs (Past 12 Hours) Vital Signs Temp Pulse Resp BP Pulse Ox O2 Del Method 05/16/24 08:22 36.6 C 59 L 16 118/65 97 Room Air 05/15/24 22:07 36.6 C 57 L 16 121/79 98 Room Air Laboratory Results Laboratory Results - last 24 hr 05/15/24 05/16/24 05/16/24 21:10 05:59 06:08 WBC 9.83 RBC 4.58 L Hgb 14.5 Hct 42.4 MCV 92.6 MCH 31.7 MCHC 34.2 RDW Std Deviation 39.4 RDW Coeff of Geo 11.6 Plt Count 224 MPV 10.1 Immature Gran % (Auto) 0.4 Neut % (Auto) 74.5 Lymph % (Auto) 14.4 Faulkner % (Auto) 9.7 Eos % (Auto) 0.8 Baso % (Auto) 0.2 Neut # (Auto) 7.32 H Lymph # (Auto) 1.42 Fa[place]ner # (Auto) 0.95 H Eos # (Auto) 0.08 Baso # (Auto) 0.02 Immature Gran # (Auto) 0.04 Sodium 139 Potassium 3.8 Chloride 105 Carbon Dioxide 27 Anion Gap 7 BUN 13 Creatinine 1.58 H Est Cr Clr Drug Dosing 69.1 Est GFR ( Amer) 71.4 Est GFR (Non-Af Amer) 61.6 BUN/Creatinine Ratio 8.2 L Glucose 81 Calcium 8.6 Total Creatine Kinase 330 H Urine Color Yellow Urine Appearance Clear Urine pH 5.5 Ur Specific Tower <= 1.005 Urine Protein 1+ H Urine Glucose (UA) Negative Urine Ketones Trace H Urine Blood 2+ H Urine Nitrite Negative Urine Bilirubin Negative Urine Urobilinogen Negative Ur Leukocyte Esterase Negative Urine RBC 0-2 Urine WBC 0-5 Ur Epithelial Cells 0-2 Urine Bacteria None Seen Ur Random Creatinine 54.7 U Random Total Protein 28.8 H Protein/Creatinin Ratio 0.5 H SARS-CoV-2 (PCR) NEGATIVE SARS-CoV-2 RNA (RT-PCR) Cancelled Diagnostic Findings XR abdomen min 2V COMPARISON STUDY: CT of the abdomen and pelvis May 14, 2024 renal ultrasound performed earlier today. FINDINGS: The bowel gas pattern is normal. The amount of stool is within normal limits. No urinary calculi are identified. IMPRESSION: Unremarkable KUB. PG Care Time/CCT Total # of Minutes Spent Total Time Spent with Patient: Total time spent is greater than 50% in coordination of care (as documented) at patient's floor/unit and/or counseling patient: Coding Level of Care Code 74370 SUB INP/OBS CARE 3/50MIN Diagnoses Elevated serum creatinine R79.89 Hematuria R31.9 Hematuria type: unspecified type Flank pain R10.9 (2) Hematuria Hematuria type: unspecified type Qualified Code(s): R31.9 - Hematuria, unspecified
--- NOTE | 2024-05-16 12:03 | Surgery Progress Note ---
Date of Service May 16, 2024 Assessment & Plan (1) Flank pain: Plan: Pt here w/ R flank pain and CT read as some free fluid in the pelvis of unclear etiology no reports of kidney stones or appendicitis on the read renal US obtained yesterday showed there is asymmetric right-sided perinephric stranding with urothelial thickening suspicious for an infectious etiology WBC 9, Cr elevated by downtrended to 1.5, Ck 330 (687) Appreciate nephrology and hospitalists assistance with case No strong evidence that his pain/symptoms/abnormal blood work is related to appendix or surgical issue at this time If any further concerns and he does not improve with medical mgmnt and signs pointing towards appendicitis can consider repeat ct with po/iv contrast, but do not believe necessary at this time Continue medical workup We will follow peripherally but please call with any questions/concerns Admission and Anticipated Discharge Date Admission Date: May 15, 2024 Supervising Physician Co-Signing Physician Notes Patient seen and examined, labs and prior imaging reviewed, agree with above. Continues with right flank and right lower quadrant pain. CT from the other day was personally viewed interpreted and showed a normal appendix without any signs of appendicitis. This may be renal in origin. No surgical intervention is recommended. Surgery will follow peripherally, call with questions or concerns Subjective Pt reports ongoing pain worse in the R sided back/flank area which radiates into his R lower abdomen. + nausea, no appetite. Physical Exam Physical Exam: awake/alert, no distress Gastrointestinal (Abdomen): abdomen soft, non distended with discomfort to palpation in right lower/s uprapubic abdomen and along R flank/mid back Results & Data Vital Signs (Past 12 Hours) Vital Signs Temp Pulse Resp BP Pulse Ox O2 Del Method 05/16/24 08:22 97.9 F 59 L 16 118/65 97 Room Air PG Care Time/CCT Total # of Minutes Spent Total Time Spent with Patient: Total time spent is greater than 50% in coordination of care (as documented) at patient's floor/unit and/or counseling patient: Coding Level of Care Code 03205 SUB INP/OBS CARE 1/25MIN Diagnoses Flank pain R10.9
[2024-05-16] MEDS ORDERED: MoRPHine SULFATE 2 MG/ML CARP IV PRN (12:36)
[2024-05-16] MEDS ORDERED: SENNA 8.6 MG TAB PO PRN (12:38)
[2024-05-16] MEDS: MoRPHine SULFATE 2 MG/ML CARP IV PRN (12:59)
[2024-05-16] MEDS: SIMETHICONE 80 MG CHEW PO PRN (13:58)
[2024-05-16] MEDS: CAPSAICIN CR 0.075% 60 GM TUBE EXT SCH (17:21)
--- NOTE | 2024-05-16 18:35 | Hospitalist Progress Note ---
Date of Service May 16, 2024 Assessment & Plan (1) Elevated serum creatinine: Plan: Patient presented with flank pain, CT scan showing small amount of free fluid in pelvis. No stones. Creatinine 1.62--> 1.74, no history of kidney disease creatinine was 1.0 a year ago Reports that he doubled his protein and creatine intake prior to workouts for the last month. Lifts weights everyday and has put on a lot of muscle mass compared to a year ago rx for Augmentin from recent broken nose, did not complete full course. Was not taking NSAIDS - keyliner Dr. Farrell is consulting - no stone seen on CT imaging - CK only mildly elevated, downtrending not in the range for rhabdomyolysis - urine eosinophils were negative - renal ultrasound unremarkable, no obstruction - cystatin C is pending - continue IVF, UOP is improved/good and Cr improved to 1.58 - from renal standpoint he's stable for discharge with outpatient follow up R flank / RLQ - this is more puzzling. Had spike in pain midday today, had one dose of morphine 2 mg - possibly musculoskeletal / abdominal wall pain - added capsaicin. No radiation to suggest radicular pain. Is not in groin. - no CT findings to explain, however had small amount fluid in pelvis. General Surgery admitted but signed off. Will continue to follow vitals/exam/AM CBC, reimage if infectious signs/sx - potentially could have passed kidney stone prior to admitting CT - potentially could have pain related to a mild gastroenteritis Plan I discussed plan of care with his father at bedside today Admission and Anticipated Discharge Date Admission Date: May 15, 2024 Subjective Generally has been feeling better with less R flank/RLQ pain compared to prior to admission, however had spike in pain midday today required dose of morphine Has nausea and anorexia but no vomiting One loose stool yesterday and feels gassy today No cough or URI symptoms, no dysuria Had been lifting weights through wednesday, onset of pain was fairly abrupt Wednesday afternoon when he took a short run home from the game. All of this is usual activity for him. Had sweats/chills Wednesday but afebrile in hospital. Physical Exam 2 Physical Exam: PHYSICAL EXAMINATION Last 24h vital signs reviewed, see documentation in flowsheet General: healthy-appearing young man HEENT: Normocephalic, atraumatic, pupils round and equal, sclerae anicteric, no conjunctival injection, moist mucus membranes Lungs: Normal respiratory effort. Clear to auscultation bilaterally. No RRW Heart: Regular rate and rhythm, no murmurs. No JVD Abdomen: Soft, nondistended. Bowel sounds present. tender to palpation in focal area just lateral to edge of rectus sheath in right lower quadrant. no right flank or L-spine tenderness to palpation Extremities: Warm, dry, well-perfused. No extremity edema. Neuro: Alert and oriented x 4, face symmetric, moves 4 extremities well Psych: Normal affect and behavior Results & Data Results & Data Vital Signs (Past 12 Hours) Vital Signs Temp Pulse Resp BP Pulse Ox O2 Del Method 05/16/24 14:03 36.6 C 53 L 18 140/86 96 Room Air 05/16/24 08:22 36.6 C 59 L 16 118/65 97 Room Air Laboratory Results 05/16/24 05:59 05/16/24 05:59 PG Care Time/CCT Total # of Minutes Spent Total Time Spent with Patient: Total time spent is greater than 50% in coordination of care (as documented) at patient's floor/unit and/or counseling patient: Coding Level of Care Code 01758 SUB INP/OBS CARE 2/35MIN Diagnoses Elevated serum creatinine R79.89
[2024-05-16] MEDS: oxyCODONE HCL IR 5 MG TAB (IMMEDIATE RELEASE) PO PRN (21:24)
[2024-05-16 22:24] VITALS: TEMP 98.1
[2024-05-17 07:22] VITALS: PULSE 52
[2024-05-17 07:38] LABS: Basophils # (auto) 0.02 K/uL (0.00-0.20); Basophils % (auto) 0.2 %; Eosinophils # (auto) 0.11 K/uL (0.00-0.50); Eosinophils % (auto) 1.2 %; Hematocrit (blood only) 38.6 % (42.0-52.0); Hemoglobin 13.4 g/dl (14.0-18.0); Immature Granulocytes # (auto) 0.03 K/uL (0.01-0.20); Immature Granulocytes % (auto) 0.3 %; Lymphocytes # (auto) 1.77 K/uL (1.20-3.40); Lymphocytes % (auto) 18.8 %; Mean Corpuscular Hemoglobin 31.8 pg (25.0-34.0); Mean Corpuscular Hgb Conc 34.7 g/dL (32.0-36.0); Mean Corpuscular Volume 91.7 fL (80.0-100.0); Mean Platelet Volume 10.4 fL (9.4-12.4); Monocytes # (auto) 0.97 K/uL (0.11-0.59); Monocytes % (auto) 10.3 %; Neutrophils # (auto) 6.49 K/uL (1.40-6.50); Neutrophils % (auto) 69.2 %; Platelet Count 221 K/uL (130-400); RDW Coefficient of Variation 11.8 % (11.5-14.5); RDW Standard Deviation 39.7 fL (36.4-46.3); Red Blood Count 4.21 M/uL (4.70-6.10); White Blood Count 9.39 K/ul (4.8-10.8)
[2024-05-17 07:58] LABS: Albumin Globulin Ratio 1.6 (0.9-2); Albumin Level 3.4 gm/dl (3.4-5.0); BUN Creatinine Ratio 5.3 (10-20); Bilirubin,Total 0.4 mg/dl (0.2-1.0); Calcium 8.5 mg/dl (8.6-10.3); Creatinine Clr Calc Pharmacy 72.4 ml/min; Est GFR (African American) 75.4 ml/min; Est GFR (Non-African American) 65.1 ml/min; Globulin 2.1 gm/dl (2.5-4.0); Potassium 3.8 mmol/L (3.5-5.1); Total Protein 5.5 gm/dl (6.0-8.3)
--- NOTE | 2024-05-17 10:30 | Nephrology Progress Note ---
Date of Service May 17, 2024 Assessment & Plan (1) Elevated serum creatinine: Plan: Non-oliguric. Serum creatinine was 1.0 mg/dL in March 2023. Creatinine stable at 1.5 mg/dL this AM. Euvolemic. Electrolytes normal. Urine does not demonstrate evidence of infection. No stones are appreciated. I discussed the plan of care with Dr. Parr this AM. For completeness, a renal duplex has been requested particularly to rule-out renal vein thrombosis. Follow up urine studies reviewed. PCR 0.5. Urine acellular. Outpatient nephrology follow up encouraged. Dipstick + blood. IVF can be stopped once taking adequate PO. Avoid NSAIDS. Close outpatient follow up in the nephrology clinic is encouraged. (2) Hematuria: Plan: Microscopic hematuria with a few RBC's on microscopy. Repeat urine microscopy was acellular. No dysmorphic RBCs or casts. Symptoms suggest non-glomerular cause. No WBCs or evidence of UTI. No additional evaluation at this time. Prospective monitoring encouraged. (3) Flank pain: Plan: Etiology unclear. Symptoms suggestive of possible recently passed stone or musculoskeletal etiology. No stones or obstruction appreciated on imaging. Renal duplex requested today. Admission and Anticipated Discharge Date Admission Date: May 15, 2024 Subjective No acute events overnight. Right sided pain in the back near the flanks persists. Some increased tenderness in the paraspinal muscles on the right appreciated. Pain waxing and waning somewhat. Denies colicky abdominal pain. No urinary symptoms. Abdominal pain improving. Denies any other GI symptoms this AM . No rash. I discussed the plan of care with Dr. Parr this AM. Review of Systems Review of Systems: All systems reviewed & are unremarkable except as noted in HPI & below Physical Exam Constitutional: well developed; no acute distress ENMT: Mouth: oral mucous membranes not dry Respiratory: normal respiratory effort Cardiovascular: Extremities: no edema Gastrointestinal (Abdomen): Inspection/Auscultation: abdomen normal to inspection; abdomen not distended Percussion/Palpation: no guarding and abdomen not rigid Musculoskeletal: Spine: lumbar spine normal to inspection and + paraspinal tenderness; no lumbar spinal tenderness and no sacroiliac joint abnormality Extremities: no cyanosis and no clubbing Skin: no rashes Neurologic: Motor/Sensory: no tremor and no asterixis Psychiatric: Orientation: alert and oriented x 3 Genitourinary: no CVA tenderness Results & Data Vital Signs (Past 12 Hours) Vital Signs Temp Pulse Resp BP Pulse Ox O2 Del Method 05/17/24 07:21 36.7 C 52 L 16 119/69 96 Room Air Laboratory Results Laboratory Results - last 24 hr 05/16/24 05/17/24 05:59 06:51 WBC 9.39 RBC 4.21 L Hgb 13.4 L Hct 38.6 L MCV 91.7 MCH 31.8 MCHC 34.7 RDW Std Deviation 39.7 RDW Coeff of Geo 11.8 Plt Count 221 MPV 10.4 Immature Gran % (Auto) 0.3 Neut % (Auto) 69.2 Lymph % (Auto) 18.8 Winn % (Auto) 10.3 Eos % (Auto) 1.2 Baso % (Auto) 0.2 Neut # (Auto) 6.49 Lymph # (Auto) 1.77 Winn # (Auto) 0.97 H Eos # (Auto) 0.11 Baso # (Auto) 0.02 Immature Gran # (Auto) 0.03 Sodium 143 Potassium 3.8 Chloride 109 H Carbon Dioxide 29 Anion Gap 5 BUN 8 Creatinine 1.51 H Est Cr Clr Drug Dosing 72.4 Cystatin C Pending Est GFR (Cystatin C) Pending Est GFR ( Amer) 75.4 Est GFR (Non-Af Amer) 65.1 BUN/Creatinine Ratio 5.3 L Glucose 84 Calcium 8.5 L Total Bilirubin 0.4 AST 15 ALT 9 Alkaline Phosphatase 42 Total Protein 5.5 L Albumin 3.4 Globulin 2.1 L Albumin/Globulin Ratio 1.6 PG Care Time/CCT Total # of Minutes Spent Total Time Spent with Patient: Total time spent is greater than 50% in coordination of care (as documented) at patient's floor/unit and/or counseling patient: Coding Level of Care Code 58063 SUB INP/OBS CARE 3/50MIN Diagnoses Elevated serum creatinine R79.89 Hematuria R31.9 Hematuria type: unspecified type Flank pain R10.9 (2) Hematuria Hematuria type: unspecified type Qualified Code(s): R31.9 - Hematuria, unspecified
--- NOTE | 2024-05-17 13:07 | Discharge Summary ---
<Statement entered by Whit Parr MD - 05/17/24 17:30> I have reviewed vital signs, chart notes, labs and imaging. I have personally seen, evaluated and examined the patient. I have also discussed the management of the patient with the DEVIKA and I agree with the exam findings documented in the history and physical examination and the documented assessment and plan unless otherwise stated below. Ghulam is feeling better today he still has some right flank/right lower quadrant pain but has improved significantly. Today he is nontender to palpation in this area, no abdominal distention bowel tones are active. He has not had any further nausea vomiting but appetite remains low he is tolerating oral fluids intake well and has had some limited food intake. unclear why he had mild RITCHIE, could have been pigment related though admitting CK only 600, urinalysis was bland not very suggestive of intrinsic renal process, he did have antibiotics recently so AIN is possible although seems unlikely, he does not seem to have been dehydrated to cause a prerenal picture likewise hard to connect his flank/lower abdominal pain and mild constitutional symptoms. potentially had mild gastroenteritis, passed a renal stone, or musculoskeletal pain. Considered early appendicitis at time of admission, however, CT was negative, no leukocytosis or fever and symptoms improving without antibiotics so it is unlikely. he did have a renal duplex ultrasound today which was negative for venous thrombosis or arterial stenosis Overall presentation is somewhat puzzling however he is clearly improving and I think the risk of immediate complications is low, I discussed return precautions with Ghulam and his mother who was in the room, discussed plan of care with Dr. Farrell who plans to follow him up in clinic, further workup if symptoms or renal dysfunction persists. cystatin C was submitted and is still pending. Discharge Summary Date of Service May 17, 2024 Principal Dx & Hospital Course #1 = Principal Diagnosis (1) Elevated serum creatinine: Patient presented with flank pain, CT scan showing small amount of free fluid in pelvis. No stones. Creatinine maximized at 1.74, settled at 1.51, with no history of kidney disease, and creatinine 1.0 a year ago. Reports that he doubled his protein and creatine intake prior to workouts for the last month. Lifts weights everyday and has put on a lot of muscle mass compared to a year ago rx for Augmentin from recent broken nose (05/12), did not complete full course. Was not taking NSAIDS. - [employer] Dr. Farrell consulted; renal duplex (05/17) reveals no sonographic evidence of renal artery stenosis, patent renal veins, and no hydronephrosis. - No stone seen on CT imaging, no appendicitis, no hydronephrosis - CK was only mildly elevated, has since down trended and was not in the range for rhabdomyolysis - Urine eosinophils were negative - Renal ultrasound unremarkable, no obstruction - Cystatin C is pending - IVF improved creatinine to 1.51, UOP is improved - Stable for discharge with outpatient follow-up R flank / RLQ -utilized multiple doses of morphine 2 mg throughout stay - Possibly musculoskeletal / abdominal wall pain -utilized capsaicin. No rad iation to suggest radicular pain, no radiation to groin. - CT findings not suggestive of etiology, however had revealed a small amount of fluid in pelvis. General Surgery admitted but signed off. - Potentially could have passed kidney stone prior to admitting CT - Potentially could have pain related to a mild gastroenteritis - Potentially could have been secondary to nerve entrapment Notes For Next Care Provider Please closely follow-up at nephrology clinic regarding creatinine as well as right-sided flank pain. Patient to avoid NSAIDs. May continue oral pain medications as previously prescribed for facial fracture. Admission HPI Per Admitting Provider This is a 23-year-old male who presented [facility] secondary to right-sided flank pain. The patient said that the pain began approximate 24 hours ago. He says it radiates somewhat to his upper abdomen. He has had associated nausea without vomiting. He did have some subjective fever but admits that he did not check his temperature. He does note that the pain is worse with certain movements. He does not really identify any palliative factors. He says that he did have a normal bowel movement today without any hematochezia, bright blood per rectum, or melena. The patient also reports that several days ago he did fall while carrying some food and he struck his face without loss of consciousness. He specifically notes that he did not strike his back or flank where he currently has pain. He notes he has never had any abdominal surgery. The patient notes that he has not had any meaningful oral intake today. Since arrival emerged part patient has had labs and imaging were checked and reviewed. CT scan of the abdomen pelvis showed no evidence of bowel obstruction. There is minimal stool burden noted. There is no evidence of diverticulitis or appendicitis. Patient was noted to have some trace dependent fluid in the pelvis which interpreting radiologist felt was abnormal for patient of this age. Labs included CBC her white blood cell count was elevated 11.7. Hemoglobin and hematocrit as well as platelet count were normal. Chemistry profile showed sodium and potassium were normal. His BUN was normal. Creatinine a slight elevation of 1.6. There is no elevation of his LFTs or lipase. Urinalysis was not indicative of infection but he did have trace of blood on his urinalysis. At the time of my interview the patient was resting comfortably bed he was no distress. Concerning past medical history the patient denies any medical problems Concerning past surgical history the patient has had his wisdom teeth extracted, a left elbow reduction secondary dislocation, and a close reduction of his nose secondary to fracture External social history the patient smokes marijuana and has used this substance within the past 24 hours. He also has a history of vaping but says he quit this approximately 1 to 2 months ago. Concerning family history he is adopted so is unaware of any significant family history Admission Exam Per Admitting Provider Constitutional: WD/WN, vitals as above Eyes: PERRL, conjunctivae normal, anicteric sclerae ENMT: Ears: no external ear abnormality Mouth: no oropharynx abnormality Neck: trachea midline Respiratory: normal respiratory effort; no respiratory distress and no labored breathing Cardiovascular: Rate/Rhythm: regular rate and regular rhythm Gastrointestinal (Abdomen): Patient abdomen is soft, nondistended and nonrigid at the time my exam. The patient had minimal pain with palpation of his abdomen and no rebound tenderness or guarding was noted. Musculoskeletal: No calf tenderness bilaterally. Pedal pulses are palpable. Skin: no rashes Neurologic: moves all extremities Psychiatric: A+Ox3, euthymic affect Genitourinary: No CVA tenderness with percussion on the left. Patient had slight CVA tenderness with percussion on the right Discharge Exam Constitutional WD/WN, vitals as above Respiratory normal respiratory effort, lungs clear to auscultation Cardiovascular RRR, no murmur, no edema Gastrointestinal (Abdomen) Inspection/Auscultation: abdomen normal to inspection and normal bowel sounds Percussion/Palpation: + abdomen tender (Mildly tender RLQ) and abdomen soft; no guarding and no hepatosplenomegaly Genitourinary no CVA tenderness Discharge Plan Discharge Items Patient Disposition: Home - Self-Care Reason For Visit: FLANK PAIN Discharge Diagnosis: Elevated serum creatinine, R flank pain Activity: Per Instructions section Activity Comment: Resume previous activities as tolerated, caution not to overdo activities. Non-emergency contact: Primary Care Provider Call non-emergency contact if: you have any medication questions, your symptoms worsen, your pain is not controlled and your pain is worsening Follow-up/Referrals: PCP,NO [Primary Care Provider] - Diet: Regular Addtl Attending Provider Instructions: You were diagnosed with elevated creatinine levels and ongoing right-sided flank pain. Creatinine did improve over several days with IV fluids. Your imaging results did not show kidney stones or appendicitis. We continued to monitor your kidney function as well as infectious markers, all of which relatively stabilized. Due to your symptoms of right-sided flank pain and elevated creatinine level, nephrology was brought on to your case. Urine did not demonstrate evidence of infection. Overall cause of right flank pain suggestive of musculoskeletal etiology or possibly a recently passed kidney stone. Creatinine levels can be elevated secondary to body habitus and increased muscle mass. Please closely follow-up with outpatient nephrology clinic and avoid NSAIDs (aleve/naproxen or motrin/ibuprofen) for now because they can cause kidney injury. Tylenol (acetaminophen) is safe to take as directed. Please purchase Capsaicin [id number] to control pain. Apply to skin to alleviate pain. Stay hydrated. Seek medical attention / return to ER if you have worsening symptoms, for example increasing abdominal/flank pain, fevers, vomiting, low urine output or dark / tea colored urine. Pending Studies at Discharge: Yes Studies:: Cystatin C Stand-Alone Forms: My [facility], Work/School Release, Smoking Cessation Medications and DC Order Prescriptions: Continued amoxicillin-pot clavulanate 875-125 mg tablet 1 tab PO BID Qty: 20 0RF oxycodone 5 mg tablet 5 mg PO Q6H PRN (Reason: pain) Qty: 8 0RF Discharge Orders: Discharge Order (Routine); Ordered 05/17/24 Ordered By: Melecio Conrad Admission Data Admit Date/Time: 05/15/24 18:16 Attending Provider: Whit Parr Admit Provider: Kennedy Lowry Primary Care Provider: PCP,NO Other Providers: Kennedy Lowry; Tien Shultz Kevin C. Hospital Stay Data Consultations 05/14/24 22:48 Consult General Surgery Routine 05/14/24 23:04 ED Decision to Admit Stat 05/15/24 07:38 Consult Hospitalist Routine 05/15/24 16:12 Consult Nephrology Routine Diagnostic Imagining Performed 05/14/24 20:21 CT abd pelvis IV con only Stat 05/15/24 07:41 US Kidney Bladder [US renal/blad retro comp] Routine 05/17/24 10:25 US duplex renal art/vein BI Routine Pending Results Patient Have Any Pending Studies at Discharge: No Discharge Instructions Given to Patient (Per Discharging Provider) You were diagnosed with elevated creatinine levels and ongoing right-sided flank pain. Creatinine did improve over several days with IV fluids. Your imaging results did not show kidney stones or appendicitis. We continued to monitor your kidney function as well as infectious markers, all of which relatively stabilized. Due to your symptoms of right-sided flank pain and elevated creatinine level, nephrology was brought on to your case. Urine did not demonstrate evidence of infection. Overall cause of right flank pain suggestive of musculoskeletal etiology or possibly a recently passed kidney stone. Creatinine levels can be elevated secondary to body habitus and increased muscle mass. Please closely follow-up with outpatient nephrology clinic and avoid NSAIDs (aleve/naproxen or motrin/ibuprofen) for now because they can cause kidney injury. Tylenol (acetaminophen) is safe to take as directed. Please purchase Capsaicin [id number] to control pain. Apply to skin to alleviate pain. Stay hydrated. Seek medical attention / return to ER if you have worsening symptoms, for example increasing abdominal/flank pain, fevers, vomiting, low urine output or dark / tea colored urine. Total Time Total Time Spent Total Time Spent (In Minutes): 35 minutes Coding Level of Care Code None Diagnoses Elevated serum creatinine R79.89
--- NOTE | 2024-05-17 14:53 | Ultrasound Report ---
DOPPLER ULTRASOUND OF THE RENAL ARTERIES CLINICAL HISTORY: Acute renal insufficiency. COMPARISON STUDY: Abdominal CT dated 05/14/2024. TECHNIQUE: Doppler sonography of the renal arteries was performed to assess renal artery stenosis. Im ages are reviewed in the transverse and longitudinal planes. FINDINGS: The kidneys appear normal in size and echotexture. The right kidney measures 11.1 cm in length and th e left kidney measures 10.8 cm in length. There is no hydronephrosis. On the right, intrarenal arterial resistive indices range from 0.73 to 0.75. Intrarenal arterial wave forms are normal with brisk upstrokes. The right renal arterial waveform is normal, and velocities wi thin the right renal artery measure up to 77 cm/sec. The right renal vein is patent. On the left, intrarenal arterial resistive indices range from 0.60 to 0.63. Intrarenal arterial wave forms are normal with brisk upstrokes. The left renal arterial waveform is normal, and velocities wit hin the left renal artery measure up to 111 cm/sec. The left renal vein is patent. The abdominal aorta is patent. Velocities within the abdominal aorta measure up to 117 cm/s. IMPRESSION: There is no sonographic evidence of renal artery stenosis. ACT 112: Negative or not required by law. Electronically signed by: David Greenfield M.D. 05/17/2024 2:51 PM
[2024-05-17 15:18] VITALS: BP 158/89; RESP 18; O2SAT 99
--- NOTE | 2024-05-17 17:30 | Billing Data ---
Date of Service May 17, 2024 Coding Level of Care Code 64747 IN/OBS DISCH 30 MIN/LESS
[2024-05-23 15:17] LABS: Cystatin C 1.05 mg/L (0.52-1.35)
== END 2024-05-17 17:18 | disposition home or self-care (01) | DRG 392 ==
LOC: 3N 19:51 → ED 19:51 → SUATTDRO 23:27 → 3N 05-15 00:34 → SUATTDRO 05-15 18:16